=== PATIENT | female | born 1985 | race Caucasian/White ===

== ENCOUNTER 2017-06-17 18:47 | Inpatient (IN) | payer BC ==
[~2017-06-17] VITALS: Ht 167.6 cm; Wt 79.4 kg
[~2017-06-17 18:47] MED LIST: Motrin PO; NATALCARE RX1 TABLET PO
[2017-06-17 19:33] LABS: BASOPHIL (%) 0.4 % (0-1); EOSINOPHIL (%) 0.6 % (0-5); EOSINOPHIL COUNT 0.1 K/uL (0-0.3); HEMATOCRIT 31.8 % (36.0-46.0); HEMOGLOBIN 10.1 G/DL (11.9-15.5); IMMATURE GRANULOCYTE (%) 2.8 % (0.0-0.7); LYMPHOCYTE COUNT 2.7 K/uL (1.0-2.8); MCHC 31.8 G/DL (30.0-36.0); MCV 81.7 FL (83-99); MONOCYTE (%) 7.8 % (3-12); MONOCYTE COUNT 0.9 K/uL (0-0.8); NEUTROPHIL (%) 64.4 % (45-76); NEUTROPHIL COUNT 7.1 K/uL (1.8-6.4); PLATELET COUNT 303 K/uL (156-360); RBC DIS.WIDTH-SD 41.1 % (39-53); RED BLOOD COUNT 3.89 M/uL (3.80-5.20); WHITE BLOOD COUNT 11.1 K/uL (4.1-10.2)
[2017-06-17 20:17] VITALS: BP 121/71
[2017-06-17 20:35] VITALS: BP 111/59
[2017-06-17 20:55] VITALS: BP 113/67
[2017-06-17 21:03] VITALS: BP 108/60
[2017-06-17 22:22] VITALS: BP 115/54
[2017-06-18 06:22] LABS: BASOPHIL (%) 0.3 % (0-1); EOSINOPHIL (%) 0.7 % (0-5); EOSINOPHIL COUNT 0.1 K/uL (0-0.3); HEMATOCRIT 30.4 % (36.0-46.0); HEMOGLOBIN 9.8 G/DL (11.9-15.5); IMMATURE GRANULOCYTE (%) 1.7 % (0.0-0.7); LYMPHOCYTE (%) 20.3 % (15-42); MCH 26.6 PG (29.0-34.0); MCHC 32.2 G/DL (30.0-36.0); MCV 82.4 FL (83-99); MONOCYTE COUNT 1.4 K/uL (0-0.8); NEUTROPHIL COUNT 10.2 K/uL (1.8-6.4); PLATELET COUNT 285 K/uL (156-360); RBC DIS.WIDTH-CV 13.9 % (11.8-14.6); RBC DIS.WIDTH-SD 41.2 % (39-53); RED BLOOD COUNT 3.69 M/uL (3.80-5.20)
== END 2017-06-19 12:37 | disposition home or self-care (01) | DRG 775 ==
LOC: LDRP-OP 18:47 → 2WEST 18:49 → LDRP-OP 07-19 13:26
PROVIDERS: Advanced Practice Midwife
PROC: 10E0XZZ Delivery of Products of Conception, External Approach (ICD-10-PCS; principal; 2017-06-17)
DX: O34.211 Maternal care for low transverse scar from previous cesarean delivery (principal); Z3A.39 39 weeks gestation of pregnancy; Z37.0 Single live birth
CPT/HCPCS: 85025; 86850; 86900; 86901